=== PATIENT | female | born 1985 | race Caucasian/White ===

== ENCOUNTER 2017-08-15 15:58 | Inpatient (IN) | payer OTHER ==
[~2017-08-15] VITALS: Ht 165.1 cm; Wt 79.5 kg
[2017-08-15] MEDS ORDERED: SODIUM CHLORIDE 0.9% 1000ML 1,000 ML IV ONE (16:23)
[2017-08-15] MEDS ORDERED: ONDANSETRON HCL 4 MG/2 ML VIAL ONE (16:23)
[2017-08-15] MEDS ORDERED: MORPHINE SULFATE 4 MG/1ML SYG ONE (16:24)
[2017-08-15 16:28] LABS: BASOPHILS % (AUTO) 0.5 % (0.0-5.0); EOSINOPHILS % (AUTO) 0.1 % (0.0-8.0); HEMATOCRIT 45.5 % (36-48); LYMPHOCYTES % (AUTO) 16.3 % (21.0-51.0); MEAN CORPUSCULAR HEMOGLOBIN 29.9 pg (27.0-33.0); MEAN CORPUSCULAR HGB CONC 34.6 g/dL (32.0-36.0); MEAN CORPUSCULAR VOLUME 86.4 fL (79-99); MONOCYTES % (AUTO) 4.2 % (3.0-13.0); NEUTROPHILS % (AUTO) 78.9 % (40.0-77.0); PLATELET COUNT (AUTO) 254 K/uL (130-400); RED BLOOD CELL COUNT(AUTO) 5.27 MIL/uL (4.00-5.50); RED CELL DISTRIBUTION WIDTH 12.4 % (11.0-15.5); WHITE BLOOD COUNT (AUTO) 11.8 K/uL (4.8-10.8)
[2017-08-15 16:42] LABS: INR 0.98 (0.85-1.15); PARTIAL THROMBOPLASTIN TIME 24.1 SEC (26.3-35.5); POTASSIUM 4.2 mmol/L (3.5-5.1); PROTHROMBIN TIME 10.3 SEC (9.6-11.6)
[2017-08-15 16:47] LABS: ALBUMIN 3.7 g/dL (3.5-5.0); BILIRUBIN,TOTAL 0.7 mg/dL (0.2-1.0); TOTAL PROTEIN, SERUM 8.4 g/dL (6.0-8.3)
[2017-08-15] MEDS ORDERED: IOPAMIDOL-370 100 ML VIAL IV ONE (17:19)
[2017-08-15] MEDS ORDERED: ENOXAPARIN SODIUM 100 MG/1 ML SQ ONE (17:22)
[2017-08-15 21:10] VITALS: BP 140/89
[2017-08-15] MEDS: TRAMADOL HCL 50 MG TABLET PO PRN (23:35)
[2017-08-16] VITALS (7 sets, daily range): BP systolic 104–125; BP diastolic 60–83
[2017-08-16 05:40] LABS: MEAN CORPUSCULAR VOLUME 86.2 fL (79-99); PLATELET COUNT (AUTO) 204 K/uL (130-400); RED BLOOD CELL COUNT(AUTO) 4.17 MIL/uL (4.00-5.50); RED CELL DISTRIBUTION WIDTH 12.3 % (11.0-15.5)
[2017-08-16 06:02] LABS: ALBUMIN 2.8 g/dL (3.5-5.0); BILIRUBIN,TOTAL 0.5 mg/dL (0.2-1.0); CREATININE 0.8 mg/dL (0.5-1.5); POTASSIUM 3.7 mmol/L (3.5-5.1); TOTAL PROTEIN, SERUM 6.6 g/dL (6.0-8.3)
[2017-08-16] MEDS: ENOXAPARIN SODIUM 80 MG/0.8 ML SQ SCH ×2 (08:20→21:52)
[2017-08-16] MEDS: TRAMADOL HCL 50 MG TABLET PO PRN ×2 (11:42→21:52)
[2017-08-16] MEDS: FOLIC ACID 1 MG TABLET PO SCH (13:30)
[2017-08-17 03:00] VITALS: BP 107/62
[2017-08-17 04:53] LABS: HEMATOCRIT 36.3 % (36-48); MEAN CORPUSCULAR HEMOGLOBIN 30.3 pg (27.0-33.0); MEAN CORPUSCULAR VOLUME 86.6 fL (79-99); PLATELET COUNT (AUTO) 209 K/uL (130-400); RED BLOOD CELL COUNT(AUTO) 4.19 MIL/uL (4.00-5.50); RED CELL DISTRIBUTION WIDTH 12.3 % (11.0-15.5); WHITE BLOOD COUNT (AUTO) 7.1 K/uL (4.8-10.8)
[2017-08-17 08:00] VITALS: BP 115/72
[2017-08-17] MEDS: FOLIC ACID 1 MG TABLET PO SCH (08:43)
[2017-08-17] MEDS: TRAMADOL HCL 50 MG TABLET PO PRN (08:43)
[2017-08-17] MEDS: ENOXAPARIN SODIUM 80 MG/0.8 ML SQ SCH (08:44)
[2017-08-17 09:21] LABS: APPEARANCE,URINE CLEAR (CLEAR); BILIRUBIN,URINE NEGATIVE (NEGATIVE); COLOR,URINE YELLOW (YELLOW); GLUCOSE, URINE (UA) NEGATIVE (NEGATIVE); KETONES,URINE NEGATIVE (NEGATIVE); LEUKOCYTE ESTERASE ,URINE NEGATIVE (NEGATIVE); NITRATE,URINE NEGATIVE (NEGATIVE); OCCULT BLOOD,URINE NEGATIVE (NEGATIVE); PROTEIN,URINE NEGATIVE (NEGATIVE); UROBILINOGEN,URINE 0.2 mg/dL (0.2-1.0)
[2017-08-17 11:56] VITALS: BP 105/65
== END 2017-08-17 15:20 | disposition home or self-care (01) | DRG 197 ==
LOC: EDH 15:58 → EDHIP 18:20 → 3BH 20:27
PROVIDERS: ADMIT Family Medicine; ATTEND Family Medicine
DX: I82.B12 Acute embolism and thrombosis of left subclavian vein (principal); I82.C12 Acute embolism and thrombosis of left internal jugular vein; Z79.01 Long term (current) use of anticoagulants
CPT/HCPCS: 36415; 70450; 70490; 71045; 71275; 80053; 81003; 82550; 84484; 84702; 85025; 85027; 85610; 85730; 93005; 93931; 93970; 93971; 99291; J1650; J2270; J2405; J7030; Q9967